=== PATIENT | female | born 1980 | race Caucasian/White ===

== ENCOUNTER → 2017-06-01 12:21 | Outpatient (CLI) | payer OTHER, SELFPAY ==
[2017-06-05 08:24] LABS: HPV Reflexed? NOT INDICATED
== END ==
PROVIDERS: Visit Provider Obstetrics & Gynecology
DX: Z12.4 Encounter for screening for malignant neoplasm of cervix (principal)
CPT/HCPCS: 88175; G0145

== ENCOUNTER → 2020-01-09 15:44 | Outpatient (CLI) | payer OTHER, SELFPAY ==
[2020-01-14 03:07] LABS: Chlamydia By Nucleic Acid AMP Negative (Negative)
[2020-01-14 10:38] LABS: Gonococcus By Nucleic Acid AMP Negative (Negative)
== END ==
PROVIDERS: Visit Provider Student in an Organized Health Care Education/Training Program
DX: Z11.3 Encounter for screening for infections with a predominantly sexual mode of transmission (principal); Z30.430 Encounter for insertion of intrauterine contraceptive device
CPT/HCPCS: 87491; 87591

== ENCOUNTER → 2021-07-06 | Outpatient (CLI) | payer OTHER, SELFPAY ==
[2021-07-12 16:37] LABS: HPV APTIMA, High Risk Negative (Negative)
== END | disposition home or self-care (01) ==
PROVIDERS: Visit Provider Student in an Organized Health Care Education/Training Program
DX: Z12.4 Encounter for screening for malignant neoplasm of cervix (principal)
CPT/HCPCS: 87624; 88175; G0145